=== PATIENT | male | born 1965 | race Caucasian/White ===

== ENCOUNTER → 2018-10-11 15:14 | Outpatient (CLI) | payer OTHER, SELFPAY ==
--- NOTE | 2018-10-11 15:20 | XR_ITS ---
XR chest 2V HISTORY: ITS.REASON: TOBACCO ABUSE DISORDER ORDERING PHYSICIAN: Katerin Solomon MD PATIENT AGE: 53 years COMPARISON: None FINDINGS: The cardiomediastinal silhouette and pulmonary vascularity are within normal limits. The lungs are clear without infiltrates, suspicious nodules, or pleural effusions. No acute bony abnormalities. IMPRESSION: Negative chest, no acute finding
== END ==
PROVIDERS: PCP Family Medicine; Visit Provider Family Medicine
DX: Z72.0 Tobacco use (principal)
CPT/HCPCS: 71046

== ENCOUNTER → 2019-04-23 08:15 | Outpatient (CLI) | payer OTHER, SELFPAY ==
--- NOTE | 2019-04-23 | CA_ITS ---
APPROVED REPORT Exam: Exercise Treadmill Technologist: Megan Rosales Ht: 5 ft 10 in Wt: 160 lbs BSA: 1.90 m2 HR: 65 bpm BP: 135/86 mmHg Indications: Gallop Rhythm Medical History Medications: None,,,,, Stress Test Details Test: Ralph HR Resting HR: 68 bpm Max Heart Rate (APMHR): 169 bpm Max HR Achieved: 164 bpm Target HR (85% APMHR): 143 bpm % of APMHR: 97 Recovery HR: 94 bpm BP Resting BP: 135.0/86.0 mmHg Max BP: 178.0/86.0 mmHg Recovery BP: 143.0/98.0 mmHg ECG Clinical Reason for Termination: Dyspnea Exercise duration: 13:01 min Highest Stage Achieved: Exercise capacity: 14.8 METs Stress ECG Conclusion Normal stress test. Patient exercised on a Ralph Protocol for 13 minutes to a peak heart rate of 164 beats per minute (target heart rate 144 beats per minute) without chest pain, ST segment changes or arrhythmias. Test stoppped due to shortness of air and leg discomfort. Total METS acheived 14.36 with peak blood pressure of 175/84 mmHg. Treadmill only, no additional imaging ordered. Test Summary Stage 5 01:00 18.0 5.0 163 . . . . REST . . . . . . . Standing REST 12:03 0.0 0.0 68 . 135/ 86 . . Stage 1 01:00 10.0 1.7 80 . . . . Stage 1 02:00 10.0 1.7 85 . . . . Stage 1 03:00 10.0 1.7 79 . 140/ 78 . . Stage 2 01:00 12.0 2.5 88 . . . . Stage 2 02:00 12.0 2.5 96 . . . . Stage 2 03:00 12.0 2.5 101 . 144/ 78 . . Stage 3 01:00 14.0 3.4 110 . . . . Stage 3 02:00 14.0 3.4 113 . . . . Stage 3 03:00 14.0 3.4 118 . 160/ 82 . . Stage 4 01:00 16.0 4.2 133 . . . . Stage 4 02:00 16.0 4.2 142 . . . . Stage 4 03:00 16.0 4.2 150 . 175/ 84 . . Stage 5 01:00 18.0 5.0 163 . . . . Stage 5 01:01 18.0 5.0 163 . . . Stop exercise at 13:01 RECOVERY 01:00 0.0 0.0 142 . 178/ 86 . . RECOVERY 02:00 0.0 0.0 127 . 178/ 86 . . RECOVERY 03:00 0.0 0.0 114 . 178/ 86 . . RECOVERY 04:00 0.0 0.0 110 . 178/ 86 . . RECOVERY 05:00 0.0 0.0 112 . 161/102 . . RECOVERY 06:00 0.0 0.0 103 . 161/102 . . RECOVERY 07:00 0.0 0.0 99 . 143/ 98 . . RECOVERY 07:17 0.0 0.0 93 . 143/ 98 . . Electronically signed by : Marquise Sow, 04/23/2019 12:59:14
== END ==
PROVIDERS: PCP Family Medicine; Visit Provider Family Medicine
DX: R00.8 Other abnormalities of heart beat (principal)
CPT/HCPCS: 93017

== ENCOUNTER → 2020-02-18 06:57 | Outpatient (CLI) | payer MEDICAID, SELFPAY ==
[2020-02-18 09:11] LABS: Coronavirus 19 IgG Antibody Negative (Negative); Coronavirus 19 IgM Antibody Negative (Negative)
== END ==
PROVIDERS: Visit Provider Surgery
DX: Z01.818 Encounter for other preprocedural examination (principal); Z12.11 Encounter for screening for malignant neoplasm of colon
CPT/HCPCS: 36415; 86328

== ENCOUNTER 2020-02-19 07:28 | Day surgery (SDC) | payer MEDICAID, SELFPAY ==
[2020-02-19] VITALS (7 sets, daily range): BP systolic 86–131; BP diastolic 58–79; PULSE 57–71; RESP 18–20; TEMP 36.6–36.7; O2SAT 97–100; BMI 21.8
--- NOTE | 2020-02-19 09:04 | HMH.SCOPE ---
- Procedure: Date: 02/19/20 Patient Date of :: 1965 Procedure Performed:: Total colonoscopy to terminal ileum with polypectomy by biopsy forceps x2 Indications:: 54-year-old male referred by Fuentes Solomon for initial screening colonoscopy Performing Provider:: Dash King MD Referring Provider:: Fuentes Solomon MD Sedation:: MAC sedation Procedure:: Patient was taken to endoscopy procedure room. He was positioned in a lateral decubitus position. Adequate intravenous sedation was achieved with anesthesia titration of propofol. Variable stiffness Olympus colonoscope was inserted via the anus and it was advanced to the cecum. Ileocecal valve and appendiceal orifice were identified. Colonoscope was advanced a short distance into the terminal ileum which appeared grossly normal. Colonoscope was withdrawn through the colon with careful surveillance. There was a tiny diminutive polyp at the proximal transverse colon removed with cold biopsy forceps. In the sigmoid colon at approximately 50 cm from the anal verge there is a small diminutive polyp removed with cold biopsy forceps. He did have some scattered rare pandiverticulosis. Retroflexion within the rectum revealed no evidence of any internal hemorrhoids. Colonoscope was withdrawn. Findings:: Tiny diminutive polyp x2 Rare scattered pandiverticulosis Recommendations:: Likely repeat colonoscopy 5 years Complications:: None immediately apparent Estimated blood obtained (mL): 2
== END 2020-02-19 09:55 | disposition home or self-care (01) ==
LOC: OUTP 07:30
PROVIDERS: PCP Family Medicine; Visit Provider Surgery
PROC: 0DJD8ZZ Inspection of Lower Intestinal Tract, Via Natural or Artificial Opening Endoscopic (ICD-10-PCS; CPT 45380; principal; 2020-02-19 08:30)
DX: Z12.11 Encounter for screening for malignant neoplasm of colon (principal); K63.5 Polyp of colon; K57.30 Diverticulosis of large intestine without perforation or abscess without bleeding; F41.9 Anxiety disorder, unspecified; Z79.899 Other long term (current) drug therapy
CPT/HCPCS: 45380

== ENCOUNTER 2021-05-13 12:21 | Observation (INO) | payer OTHER, SELFPAY ==
[2021-05-13] VITALS (22 sets, daily range): BP systolic 113–147; BP diastolic 72–99; PULSE 80–94; RESP 16–20; TEMP 36.4–36.9; O2SAT 91–98; BMI 21.8; BMI 22.6
--- NOTE | 2021-05-13 12:45 | CT_ITS ---
FINAL REPORT CLINICAL HISTORY: RLQ pain, r/o appendicitis FINDINGS: Technique: The patient was injected with intravenous contrast. Axial images through the abdomen and pelvis were performed. Abdomen: There is abnormal linear density at the right lung base consistent with atelectasis. The gallbladder is present. The liver is normal in size and attenuation. The spleen is unremarkable. The adrenals are normal. The pancreas is unremarkable. The kidneys enhance appropriately. The aorta is normal in caliber. There is no free fluid or adenopathy. Pelvis: The appendix has a marked abnormal appearance. It is enlarged measuring 1.5 cm in diameter. There is surrounding inflammatory reaction. No appendicolith is seen. There is no definite abscess. Scattered diverticula are noted within the sigmoid colon. Heterogeneous attenuation is noted throughout the prostate. There is an ovoid subcutaneous structure in the right gluteal region measuring 3.7 x 1.9 cm and is probably related to a sebaceous cyst. The urinary bladder is unremarkable. There is no free fluid or adenopathy. There is bilateral pars defects at L5 well seen on image 77 of series 3. IMPRESSION: Abnormally appearing, enlarged appendix with surrounding inflammatory reaction and no definite abscess. Probable sebaceous cyst in the right gluteal region. Bilateral pars defects at L5. Heterogeneous prostate. Reviewed, Interpreted and Dictated by Jayme Pierce MD Transcribed by Michelle Bull Authenticated by Jayme Pierce MD on 05/13/2021 02:18:09 PM [facility]
--- NOTE | 2021-05-13 12:46 | HMH.EDGENADL ---
ED Disposition Clinical Impression: Acute appendicitis Qualifiers: Acute appendicitis type: with localized peritonitis Appendicitis gangrene presence: without gangrene Appendicitis perforation presence: without perforation Appendicitis abscess presence: without abscess Qualified Code(s): K35.30 - Acute appendicitis with localized peritonitis, without perforation or gangrene Disposition: Still a Patient Condition on Discharge: Fair Referrals: Katerin Solomon MD [Primary Care Provider] - - Critical Care Critical Care Time: No Attestation: On 05/13/21, the high probability of a clinically significant, sudden or life threatening deterioration of the following system(s) required my full and direct attention, intervention and personal management. The time I documented below is in addition to time spent performing reported procedures but includes the following listed in this critical care notation. Medical Decision Making - Jayesh Inquiry Pt receiving controlled substance: No Vital Signs: 05/13/21 12:22 Temperature 98.1 F Temperature Source Oral Pulse Rate [Right Radial] 87 Respiratory Rate 16 Blood Pressure [Right Arm] 147/99 H Blood Pressure Mean [Right Arm] 115 Blood Pressure Source [Right Arm] Automatic Cuff Blood Pressure Position [Right Arm] Sitting 02 Sat by Pulse Oximetry 98 Oxygen Delivery Method Room Air - Lab Data Lab Results 05/13/21 13:07: WBC 19.3 H, RBC 5.60, Hgb 17.2, Hct 51.9, MCV 92.8, MCH 30.7, MCHC 33.1, RDW 13.3, Plt Count 301, MPV 7.8, Neut % (Auto) 84.6 H, Lymph % (Auto) 8.2 L, Rich % (Auto) 6.1, Eos % (Auto) 0.5, Baso % (Auto) 0.6, Neut # (Auto) 16.3 H, Lymph # (Auto) 1.6, Rich # (Auto) 1.2 H, Eos # (Auto) 0.1, Baso # (Auto) 0.1 05/13/21 13:07: Sodium 136, Potassium 4.3, Chloride 100, Carbon Dioxide 27, Anion Gap 13.3, BUN 13, Creatinine 0.80, Estimated Creat Clear 104, Estimated GFR 101, Est GFR ( Amer) 122, Glucose 104 H, Calcium 9.6, Total Bilirubin 1.8 H, AST 31, ALT 23, Alkaline Phosphatase 96, Total Protein 8.7 H, Albumin 4.7, Globulin 4.0 H, Albumin/Globulin Ratio 1.2, Lipase 19 L Result diagrams: 05/13/21 13:07 05/13/21 13:07 Orders (Tests/Meds): ED MEDICATIONS Generic Name Dose Route Start Last Admin Trade Name Freq PRN Reason Stop Dose Admin Sodium Chloride 1,000 mls @ 150 mls/hr 05/13/21 12:45 05/13/21 13:10 Sod Chlor 0.9% 1000ml Bag IV 06/12/21 12:44 150 mls/hr .[id number] DINORA Administration Discontinued Medications Generic Name Dose Route Start Last Admin Trade Name Freq PRN Reason Stop Dose Admin Iopamidol 75 ml 05/13/21 13:23 05/13/21 13:24 Iopamidol-370 (76%);100ml Bottle IV 05/13/21 13:24 75 ml ONCE ONE Administration Sodium Chloride 10 ml 05/13/21 13:23 05/13/21 13:24 Sodium Chloride 0.9% 10ml Syr (Rad Only) IV 05/13/21 13:24 10 ml ONCE ONE Administration ORDERS Category Date Time Status CT abdomen pelvis w con Stat Cat Scan 05/13/21 12:45 Taken Complete Blood Count Auto Diff Stat Lab 05/13/21 13:07 Results Rapid PCR Covid and Flu A/B Stat Lab 05/13/21 13:40 Received - CT Data CT Scan: Abdomen, Pelvis Time Received: 14:[address] Reviewed: Yes: I have viewed the radiologist's interpretation Findings Narrative: Preliminary report: Abnormally appearing enlarged appendix with surrounding inflammatory reaction and no definite abscess. Probable sebaceous cyst in the right gluteal region. General Adult HPI - General Stated complaint: possible appendicitis Time Seen by Provider: 05/13/21 12:40 - History of Present Illness HPI narrative: Sent from Dr. Solomon's office with presumptive diagnosis of appendicitis. Complains of right lateral abdominal pain that started yesterday morning. Worsens with movements. Denies vomiting, diarrhea, fever, urinary symptoms. No prior abdominal surgeries. Had a CBC and urinalysis performed in Dr. Solomon's office. White blood cell count 22,000. Urinalysis unre
--- NOTE | 2021-05-13 12:52 | HMH.HP ---
*Admission Date: 05/13/21 *Chief complaint: right lower abdominal pain *History of present illness: Mr. Vilchis is a 55-year-old male who is relatively healthy who presented to the office of [facility] today after experiencing right lower quadrant abdominal pain. The pain started yesterday and progressively has worsened. He states it felt better when sitting but when up walking it became worse. He denied having any nausea or vomiting. His bowels were moving normally. He denied fever. He was unable to sleep during the night due to the discomfort. Thus he presented to the office for evaluation. In the office he was noted to be tender in the right lower quadrant. He was afebrile with a temperature of 98.4. He had a complete blood count with a white blood cell count of 22,000, hemoglobin was 16.5 and hematocrit 47.5. Granulocytes were 83.7. Urine showed only 1+ ketones 1+ bili and 1+ protein; nitrates and leukocytes were negative. Patient was felt to have an acute appendicitis with the need for admission to [facility]. Due to hospital regulation he was sent to the emergency room for further evaluation and for the admission. At the time of this report patient remains in the emergency room and will have a CT of the abdomen. [facility] History Medical History: Reports:: Anxiety Denies:: Cancer, Diabetes Mellitus Type 1, Diabetes Mellitus Type 2, Internal Pacemaker, MRSA, Seizures *Have you ever received a pneumonia vaccine?: No *Have you received a flu vaccine this season?: No Other Medical History: Reports: Blood Transfusion Reaction Other Surgeries: Yes: No Previous Surgery, Colonoscopy. No: Pacemaker Amputation: No Fractures: Yes Comment: Fracture left arm with placement of 2 plates. Cyst removal from the right side of his head. - *Social History Smoking Status: Current every day smoker Tobacco Type: cigarettes # Packs/Day (cigarettes): 2 Alcohol Intake: never Substance Use Type: denies use *Occupational Status:: employed Housing: house *Travel in the last 8 weeks: None - Psychiatric History Pschychiatric History:: Reports:: Anxiety Family Hx:: No significant family history Review of Systems - Constitutional Denies fever(s), Denies lack of energy, Denies weight loss - Eyes Denies change in vision - ENT Denies ear pain, Denies sore throat - *Cardiovascular Denies chest pain, Denies shortness of breath, Denies leg swelling - *Respiratory Denies chest congestion, Denies cough, Denies shortness of breath - *Gastrointestinal Reports abdominal pain (RLQ), Denies constipation, Denies loose stools, Denies heartburn, Denies nausea, Denies vomiting - *Genitourinary Denies difficulty urinating - *Musculoskeletal Denies abnormal walking - *Neurologic Denies abnormal walking, Denies seizure-like activity Meds Home Medications Medication Instructions Recorded Confirmed Type alprazolam 1 mg tablet 1 mg PO DAILY tab 01/28/20 03/03/20 History Allergies Allergy/AdvReac Type Severity Reaction Status Date / Time No Known Allergies Allergy Verified 03/03/20 10:20 Exam - Constitutional no acute distress - *Routine HEENT Exam Head: Present: normocephalic, atraumatic Eye: Absent: PERRL, conjunctival icterus, scleral injection ENT: Present: mucous membranes moist, oropharynx clear - *Routine Neck Exam Present: supple. Absent: normal carotid upstroke, lymphadenopathy, thyromegaly - *Routine Respiratory Exam Present: CTA bilaterally (A&P) - *Routine Cardiovascular Exam Present: RRR - *Routine Abdominal Exam Present: soft, normoactive bowel sounds, tenderness (RLQ), rebound. Absent: distended - *Routine Rectal Exam Rectal:: deferred - *Routine Genitalia Exam Genitalia:: deferred - *Routine Extremities Exam Absent: edema, calf tenderness - *Routine Neurological Exam Present: alert, oriented X3 Assessment and Plan (1) Right lower quadrant abdominal pain Status: Acute Category:
--- NOTE | 2021-05-13 13:12 | PC.NURSE ---
pt to CT
[2021-05-13 13:32] LABS: Basophils # 0.1 K/mm3 (0-0.2); Basophils % 0.6 % (0.1-2.0); Chloride 100 mmol/L (98-107); Eosinophils # 0.1 K/mm3 (0.0-0.4); Eosinophils % 0.5 % (0.1-12.0); Hematocrit 51.9 % (42.0-52.0); Hemoglobin 17.2 g/dL (14.1-18.0); Lymphocytes # 1.6 K/mm3 (0.7-4.5); Lymphocytes % 8.2 % (10-50); Mean Corpuscular HGB Conc 33.1 g/dL (31.8-35.4); Mean Corpuscular Hemoglobin 30.7 pg (27.0-31.2); Mean Corpuscular Volume 92.8 fl (80-94); Mean Platelet Volume 7.8 fl (7.4-10.4); Monocytes # 1.2 K/mm3 (0.1-1.0); Monocytes % 6.1 % (1.7-9.3); Neutrophils # 16.3 K/mm3 (1.8-7.8); Neutrophils % 84.6 % (37.0-80.0); Platelet Count 301 K/mm3 (142-424); Potassium 4.3 mmoL/L (3.5-5.1); Red Cell Distribution Width 13.3 % (11.5-17.5); Sodium 136 mmol/L (136-145); White Blood Count 19.3 K/mm3 (4.8-10.8)
[2021-05-13 13:35] LABS: Alanine Aminotransferase 23 U/L (12-78); Albumin Level 4.7 g/dl (3.5-5.0); Albumin/Globulin Ratio 1.2 (1.1-1.8); Alkaline Phosphatase 96 U/L (38-126); Anion Gap 13.3 mEq/L (5-15); Aspartate Amino Transferase 31 U/L (17-59); Bilirubin,Total 1.8 mg/dl (0.2-1.3); Blood Urea Nitrogen 13 mg/dl (9-20); Calcium 9.6 mg/dl (8.4-10.2); Carbon Dioxide 27 mmol/L (22.0-30.0); Creatinine Clearance Estimated 104 mL/min (50-200); Estimated Glomerular Filt Rate 101 ml/min (>60); GFR (African American) 122 ML/MIN (>60); Glucose 104 mg/dl (74-100); Lipase 19 U/L (23-300); Total Protein,Serum 8.7 g/dl (6.3-8.2)
[2021-05-13 13:37] LABS: MANUAL DIFFERENTIAL MANUAL DIFFERENTIAL (MANUAL DIFF)
[2021-05-13 13:45] LABS: Coronavirus 19, PCR Not Detected (NotDetected); Influenza A, PCR Not Detected (NotDetected); Influenza B, PCR Not Detected (NotDetected)
--- NOTE | 2021-05-13 14:17 | PC.NURSE ---
DR STROUD AT BEDSIDE
--- NOTE | 2021-05-13 14:23 | PC.NURSE ---
pt to surgery
--- NOTE | 2021-05-13 14:40 | HMH.GSCON ---
*Admission Date: 05/13/21 *Reason for consult:: Appendicitis *History of present illness: Wenceslao is a 55-year-old gentleman seen in consultation from Dr. Solomon for evaluation regarding appendicitis. He presented earlier today with a 1 day history of increasing right-sided abdominal pain. Evaluation revealed tenderness in the right side and significant leukocytosis. He was transferred to the emergency department. A CT scan confirmed changes consistent with appendicitis. Review of Systems - Constitutional Denies chills - Eyes Denies change in vision - ENT Denies difficulty swallowing - *Cardiovascular Denies chest pain - *Respiratory Denies cough - *Gastrointestinal Reports abdominal pain - *Genitourinary Denies difficulty urinating - Integumentary/Breasts Denies new lesions - *Neurologic Denies abnormal walking, Denies seizure-like activity - Psychiatric Denies anxiety - Endocrine Denies cold intolerance - Hematologic/Lymphatic Denies easy bleeding [facility] History Medical History: Reports:: Anxiety Denies:: Cancer, Diabetes Mellitus Type 1, Diabetes Mellitus Type 2, Internal Pacemaker, MRSA, Seizures *Have you ever received a pneumonia vaccine?: No *Have you received a flu vaccine this season?: No Other Medical History: Reports: Blood Transfusion Reaction Other Surgeries: Yes: No Previous Surgery, Colonoscopy. No: Pacemaker Amputation: No Fractures: Yes - *Social History Smoking Status: Current every day smoker Tobacco Type: cigarettes # Packs/Day (cigarettes): 2 Alcohol Intake: never Substance Use Type: denies use *Occupational Status:: employed Housing: house *Travel in the last 8 weeks: None - Psychiatric History Pschychiatric History:: Reports:: Anxiety Family Hx:: No significant family history Meds Home Medications Medication Instructions Recorded Confirmed Type alprazolam 1 mg tablet 1 mg PO DAILY tab 01/28/20 03/03/20 History Allergies Allergy/AdvReac Type Severity Reaction Status Date / Time No Known Allergies Allergy Verified 03/03/20 10:20 Exam Vital signs and Labs for Last 24 Hours: Temp Pulse Resp BP Pulse Ox 98.1 F 87 16 147/99 H 98 05/13/21 12:22 05/13/21 12:22 05/13/21 12:22 05/13/21 12:22 05/13/21 12:22 Laboratory Results - last 24 hr 05/13/21 13:07: WBC 19.3 H, RBC 5.60, Hgb 17.2, Hct 51.9, MCV 92.8, MCH 30.7, MCHC 33.1, RDW 13.3, Plt Count 301, MPV 7.8, Neut % (Auto) 84.6 H, Lymph % (Auto) 8.2 L, Garvin % (Auto) 6.1, Eos % (Auto) 0.5, Baso % (Auto) 0.6, Neut # (Auto) 16.3 H, Lymph # (Auto) 1.6, Garvin # (Auto) 1.2 H, Eos # (Auto) 0.1, Baso # (Auto) 0.1 05/13/21 13:07: Sodium 136, Potassium 4.3, Chloride 100, Carbon Dioxide 27, Anion Gap 13.3, BUN 13, Creatinine 0.80, Estimated Creat Clear 104, Estimated GFR 101, Est GFR ( Amer) 122, Glucose 104 H, Calcium 9.6, Total Bilirubin 1.8 H, AST 31, ALT 23, Alkaline Phosphatase 96, Total Protein 8.7 H, Albumin 4.7, Globulin 4.0 H, Albumin/Globulin Ratio 1.2, Lipase 19 L I & O for Last 24 hours: Intake & Output 05/11/21 05/12/21 05/13/21 05/14/21 11:59 11:59 11:59 11:59 Weight 152 lb - Constitutional no acute distress - *Routine HEENT Exam Head: Present: normocephalic Eye: Present: EOMI ENT: Present: mucous membranes moist - *Routine Neck Exam Present: full ROM - *Routine Respiratory Exam Absent: respiratory distress - *Routine Cardiovascular Exam Present: RRR - *Routine Abdominal Exam Present: soft, tenderness - *Routine Skin Exam Absent: cyanosis, erythema - *Routine Neurological Exam Present: alert - Routine Psychiatric Exam Present: normal affect Results - Labs 05/13/21 13:07 05/13/21 13:07 Laboratory Results - last 24 hr 05/13/21 13:07: WBC 19.3 H, RBC 5.60, Hgb 17.2, Hct 51.9, MCV 92.8, MCH 30.7, MCHC 33.1, RDW 13.3, Plt Count 301, MPV 7.8, Neut % (Auto) 84.6 H, Lymph % (Auto) 8.2 L, Garvin % (Auto) 6.1, Eos % (Auto) 0.5, Baso % (Auto)
[2021-05-13 15:15] LABS: Lymphocytes % 6 % (10-50); Monocytes % 9 % (2-9); Neutrophils % 85 % (42-76); Platelet Estimate Normal; Total Cells Counted 100
--- NOTE | 2021-05-13 15:17 | HMH.ANESCL ---
[facility] Anesthesia Checklist - Patient Identification Patient Identification: Arm Band - Structural Data Admitted From: Emergency Dept Planned Operative Procedure/s: Laparoscopic Appendectomy Consent for Planned Operative Procedure(s) Verified: Yes Verified Documents: Surgical Consent, History and Physical - NPO Status Verified Time NPO: 00:00 - Additional verifications Anesthesia Reactions: No Blood Transfusion Reaction: Yes - Airway Assessment C-Spine Mobility Assessed: Yes (mp2) TMJ Mobility Assessed: Yes Dentition: Poor Dentition - Neurological Assessment Level of Consciousness: Awake, Alert - Anesthesia Plan Anesthesia Risk discussed: Yes Anesthesia Plan: Verified ASA Class: II (e) Anesthesia Type: General [facility] History I have reviewed the patient's past medical history: Yes Medical History: Reports:: Anxiety Denies:: Cancer, Diabetes Mellitus Type 1, Diabetes Mellitus Type 2, Internal Pacemaker, MRSA, Seizures *Have you ever received a pneumonia vaccine?: No *Have you received a flu vaccine this season?: No Other Medical History: Reports: Blood Transfusion Reaction Anesthesia experience/problems:: nac Other Surgeries: Yes: Colonoscopy. No: Pacemaker Amputation: No Fractures: Yes - *Social History Smoking Status: Current every day smoker Tobacco Type: cigarettes # Packs/Day (cigarettes): 2 Alcohol Intake: never Substance Use Type: denies use *Occupational Status:: employed Housing: house *Travel in the last 8 weeks: None - Psychiatric History Pschychiatric History:: Reports:: Anxiety Family Hx:: No significant family history
--- NOTE | 2021-05-13 16:08 | HMH.OPNOTE ---
Date of procedure: 05/13/21 Pre-op Diagnosis:: Appendicitis Post-op Diagnosis:: Suppurative appendicitis Procedure performed:: Laparoscopic appendectomy Surgeon:: Danie Swain MD LAPPING MACHINE OPERATOR:: Nilo Cedillo Anesthesia: HILLARY Estimated blood loss (mL): 15 Operative findings:: Severe inflammatory changes throughout appendix Suppurative changes along mid and distal appendix No definite perforation Appendix directly adhered to adjacent colon and adjacent small bowel No definitive evidence of colonic or small bowel injury Operative note:: After informed consent was obtained the patient was taken to the operating room and placed in the supine position. General anesthesia was induced and his abdomen was prepped and draped in a sterile fashion. After infiltration local anesthetic a supraumbilical incision was made. A Veress needle was placed in position. The abdomen was insufflated. A 12 mm optical trocar was placed in position. Under direct visualization an additional 5 mm trocar was placed in the suprapubic position and an additional 5 mm trocar was placed in the left lower quadrant. The right abdominal cavity was carefully elevated. Severe inflammation throughout the right mid and upper abdomen was noted. Dissection was exceptionally difficult and the appendix was discovered to be in a retrocecal location with dense direct adhesions to the adjacent colon and dense direct adhesions to the small bowel. The appendix was carefully elevated at its base. A window was made in the mesoappendix at the base and a stapling device was utilized to transect the appendix. Harmonic lion were then used to dissect the appendix free from adjacent inflammatory tissue. The dissection was taken on the margin of the appendix to lessen the risk for injury to colon or small bowel. No obvious colonic or small bowel injury was noted. The mid and distal appendix were increasingly inflamed and suppurative changes were confirmed. No definite perforation was seen. Once the appendix was freed from surrounding tissue it was placed in a retrieval bag and removed through the supraumbilical trocar site. The right gutter was carefully irrigated. No obvious bleeding or sign of injury was noted. The trocars were removed. Fascia at the supraumbilical trocar site was reapproximated with 0 Ethibond. Skin was then closed with 4-0 Monocryl in an interrupted fashion after all wounds were irrigated. Dressings were applied and the patient was transferred to recovery in stable condition after extubation. Condition: stable Disposition: PACU Specimens:: Appendix Complications:: No immediate
--- NOTE | 2021-05-13 16:13 | P.PN_ITS ---
[facility] Anesthesia Record Part I Intake, IV Amount: 1,200 Estimated blood loss (mL): 10 Urine output (mL): 0 Blood Pressure: 130/79 SaO2: 97 Pulse Rate: 83 Respiratory Rate: 16 Temperature: 98.2 F Patient is:: Drowsy, Stable Stable to PACU at:: 16:10
--- NOTE | 2021-05-13 16:58 | PC.NURSE ---
1654-detailed report called to Ros,RN [id number]-pt transported to med/surg via hospital bed w/winston rails up, vss, pt stable upon discharge from pacu
--- NOTE | 2021-05-13 17:44 | HMH.ANESII ---
[facility] Anesthesia Record Part II Discharge Time: 16:56 Destination: Medical Surgical Department PACU nurse assessment reviewed?: Yes Patient Condition:: Good Anesthesia Complications:: None Swallowing reflex intact?: Yes Cyanosis?: No Blood Pressure: 141/88 Pulse Rate: 84 Temperature: 98.4 F Mental Status: Alert & Oriented Pain level:: 0 Nausea and/or vomitting:: None Intake, IV Amount: 0
[2021-05-14] VITALS: BP 124/84; PULSE 80; RESP 18; TEMP 36.7; O2SAT 97
[2021-05-14 04:00] VITALS: BP 108/67; PULSE 74; RESP 18; TEMP 37.1; O2SAT 95
[2021-05-14 05:02] VITALS: BMI 22.6
[2021-05-14 06:39] LABS: Basophils % 0.1 % (0.1-2.0); Hematocrit 40.9 % (42.0-52.0); Lymphocytes # 1.5 K/mm3 (0.7-4.5); Lymphocytes % 7.6 % (10-50); Mean Corpuscular HGB Conc 32.6 g/dL (31.8-35.4); Mean Corpuscular Hemoglobin 30.5 pg (27.0-31.2); Mean Corpuscular Volume 93.7 fl (80-94); Mean Platelet Volume 8.4 fl (7.4-10.4); Monocytes # 0.9 K/mm3 (0.1-1.0); Monocytes % 4.5 % (1.7-9.3); Neutrophils # 16.6 K/mm3 (1.8-7.8); Neutrophils % 87.7 % (37.0-80.0); Platelet Count 239 K/mm3 (142-424); Red Blood Count 4.37 M/mm3 (4.60-6.20); Red Cell Distribution Width 13.4 % (11.5-17.5); White Blood Count 18.9 K/mm3 (4.8-10.8)
[2021-05-14 06:48] LABS: MANUAL DIFFERENTIAL MANUAL DIFFERENTIAL (MANUAL DIFF)
--- NOTE | 2021-05-14 07:00 | HMH.GSPN ---
Subjective Patient reports: flatus Narrative: He states that he is feeling a bit better this morning . Progress Note: A&P (1) Right lower quadrant abdominal pain Status: Acute (2) Smoking addiction Status: Chronic (3) Anxiety Status: Chronic (4) Leucocytosis Status: Acute (5) Suppurative appendicitis Status: Acute Assessment and plan: Overall, doing well status post laparoscopic appendectomy. Continue antibiotics for now secondary to suppurative nature of appendicitis Increase ambulation Full liquid diet ordered (very slow advancement of diet warranted secondary to intraoperative findings) Exam Vital signs and Labs for Last 24 Hours: Temp Pulse Resp BP Pulse Ox 98.8 F 74 18 108/67 L 95 05/14/21 04:00 05/14/21 04:00 05/14/21 04:00 05/14/21 04:00 05/14/21 04:00 Laboratory Results - last 24 hr 05/13/21 13:07: WBC 19.3 H, RBC 5.60, Hgb 17.2, Hct 51.9, MCV 92.8, MCH 30.7, MCHC 33.1, RDW 13.3, Plt Count 301, MPV 7.8, Neut % (Auto) 84.6 H, Lymph % (Auto) 8.2 L, [place] % (Auto) 6.1, Eos % (Auto) 0.5, Baso % (Auto) 0.6, Neut # (Auto) 16.3 H, Lymph # (Auto) 1.6, [place] # (Auto) 1.2 H, Eos # (Auto) 0.1, Baso # (Auto) 0.1, Total Counted 100, Neutrophils % (Manual) 85 H, Lymphocytes % (Manual) 6 L, Monocytes % (Manual) 9, Platelet Estimate Normal 05/13/21 13:07: Sodium 136, Potassium 4.3, Chloride 100, Carbon Dioxide 27, Anion Gap 13.3, BUN 13, Creatinine 0.80, Estimated Creat Clear 104, Estimated GFR 101, Est GFR ( Amer) 122, Glucose 104 H, Calcium 9.6, Total Bilirubin 1.8 H, AST 31, ALT 23, Alkaline Phosphatase 96, Total Protein 8.7 H, Albumin 4.7, Globulin 4.0 H, Albumin/Globulin Ratio 1.2, Lipase 19 L 05/13/21 13:40: SARS-CoV-2 (PCR) Not detected, Influenza A Untype (PCR) Not detected, Influenza Type B (PCR) Not detected 05/14/21 05:39: WBC 18.9 H, RBC 4.37 L, Hct 40.9 L, MCV 93.7, MCH 30.5, MCHC 32.6, RDW 13.4, Plt Count 239, MPV 8.4, Neut % (Auto) 87.7 H, Lymph % (Auto) 7.6 L, [place] % (Auto) 4.5, Eos % (Auto) 0.0 L, Baso % (Auto) 0.1, Neut # (Auto) 16.6 H, Lymph # (Auto) 1.5, [place] # (Auto) 0.9, Eos # (Auto) 0.0, Baso # (Auto) 0.0 I & O for Last 24 hours: Intake & Output 05/11/21 05/12/21 05/13/21 05/14/21 11:59 11:59 11:59 11:59 Intake Total 2800 / 2800 Balance 2800 / 2800 Weight 158 lb 9 oz - Constitutional no acute distress - *Routine Respiratory Exam Absent: respiratory distress - *Routine Cardiovascular Exam Present: RRR - *Routine Abdominal Exam Present: soft, tenderness Comments: Dressings intact
[2021-05-14 07:15] LABS: Anion Gap 10.9 mEq/L (5-15); Blood Urea Nitrogen 11 mg/dl (9-20); Calcium 8.3 mg/dl (8.4-10.2); Carbon Dioxide 22 mmol/L (22.0-30.0); Chloride 107 mmol/L (98-107); Creatinine Clearance Estimated 109 mL/min (50-200); Estimated Glomerular Filt Rate 101 ml/min (>60); GFR (African American) 122 ML/MIN (>60); Glucose 115 mg/dl (74-100); Potassium 3.9 mmoL/L (3.5-5.1); Sodium 136 mmol/L (136-145)
--- NOTE | 2021-05-14 07:35 | HMH.PHAVTE ---
[facility] Pharmacy VTE Monitoring - Patient Demographics Admission date: 05/13/21 Report Date: 05/14/21 Time: 07:35 Allergies/Adverse Reactions: Patient Allergies No Known Allergies Allergy (Verified 03/03/20 10:20) Height: 1.78 m Weight: 71.923 kg Patient Problems: Current Active Problems Right lower quadrant abdominal pain (Acute) Smoking addiction (Chronic) Anxiety (Chronic) Leucocytosis (Acute) Suppurative appendicitis (Acute) - VTE Risk Labs: VTE Related Lab Results Hgb 17.2 g/dL (14.1-18.0) 05/13/21 13:07 Hct 40.9 % (42.0-52.0) L 05/14/21 05:39 Plt Count 239 K/mm3 (142-424) 05/14/21 05:39 BUN 11 mg/dl (9-20) 05/14/21 05:39 Creatinine 0.80 mg/dl (0.66-1.25) 05/14/21 05:39 Estimated Creat Clear 109 mL/min (50-200) 05/14/21 05:39 - Prophylaxis VTE Prophylaxis Ordered?: Yes Types of VTE Prophylaxis: TEDS Knee High Location of Applied Device: Bilateral Lower Extremeties
[2021-05-14 07:59] LABS: Lymphocytes % 7 % (10-50); Monocytes % 2 % (2-9); Neutrophils % 91 % (42-76); Platelet Estimate Normal; RBC Morphology Normal; Total Cells Counted 100
[2021-05-14 08:00] VITALS: BP 106/68; PULSE 71; RESP 16; TEMP 36.8; O2SAT 94
[2021-05-14 08:27] LABS: Hemoglobin 13.3 g/dL (14.1-18.0)
--- NOTE | 2021-05-14 08:46 | HMH.ACPN2 ---
Internal Medicine - PN: Subj *Date: 05/14/21 *Time: 08:46 Interval history: The patient had an appendectomy yesterday evening and tolerated the procedure well. He has some soreness in his abdomen this morning but has been able to tolerate a diet. He slept last night. Exam Vital signs and Labs for Last 24 Hours: Temp Pulse Resp BP Pulse Ox 98.8 F 74 18 108/67 L 95 05/14/21 04:00 05/14/21 04:00 05/14/21 04:00 05/14/21 04:00 05/14/21 04:00 Laboratory Results - last 24 hr 05/13/21 13:07: WBC 19.3 H, RBC 5.60, Hgb 17.2, Hct 51.9, MCV 92.8, MCH 30.7, MCHC 33.1, RDW 13.3, Plt Count 301, MPV 7.8, Neut % (Auto) 84.6 H, Lymph % (Auto) 8.2 L, [place] % (Auto) 6.1, Eos % (Auto) 0.5, Baso % (Auto) 0.6, Neut # (Auto) 16.3 H, Lymph # (Auto) 1.6, [place] # (Auto) 1.2 H, Eos # (Auto) 0.1, Baso # (Auto) 0.1, Total Counted 100, Neutrophils % (Manual) 85 H, Lymphocytes % (Manual) 6 L, Monocytes % (Manual) 9, Platelet Estimate Normal 05/13/21 13:07: Sodium 136, Potassium 4.3, Chloride 100, Carbon Dioxide 27, Anion Gap 13.3, BUN 13, Creatinine 0.80, Estimated Creat Clear 104, Estimated GFR 101, Est GFR ( Amer) 122, Glucose 104 H, Calcium 9.6, Total Bilirubin 1.8 H, AST 31, ALT 23, Alkaline Phosphatase 96, Total Protein 8.7 H, Albumin 4.7, Globulin 4.0 H, Albumin/Globulin Ratio 1.2, Lipase 19 L 05/13/21 13:40: SARS-CoV-2 (PCR) Not detected, Influenza A Untype (PCR) Not detected, Influenza Type B (PCR) Not detected 05/14/21 05:39: WBC 18.9 H, RBC 4.37 L, Hgb 13.3 L D, Hct 40.9 L, MCV 93.7, MCH 30.5, MCHC 32.6, RDW 13.4, Plt Count 239, MPV 8.4, Neut % (Auto) 87.7 H, Lymph % (Auto) 7.6 L, [place] % (Auto) 4.5, Eos % (Auto) 0.0 L, Baso % (Auto) 0.1, Neut # (Auto) 16.6 H, Lymph # (Auto) 1.5, [place] # (Auto) 0.9, Eos # (Auto) 0.0, Baso # (Auto) 0.0, Total Counted 100, Neutrophils % (Manual) 91 H, Lymphocytes % (Manual) 7 L, Monocytes % (Manual) 2, Platelet Estimate Normal, RBC Morphology Normal 05/14/21 05:39: Sodium 136, Potassium 3.9, Chloride 107, Carbon Dioxide 22, Anion Gap 10.9, BUN 11, Creatinine 0.80, Estimated Creat Clear 109, Estimated GFR 101, Est GFR ( Amer) 122, Glucose 115 H, Calcium 8.3 L I & O for Last 24 hours: Intake & Output 05/11/21 05/12/21 05/13/21 05/14/21 11:59 11:59 11:59 11:59 Intake Total 3000 / 3000 Balance 3000 / 3000 Weight 158 lb 9 oz - Constitutional no acute distress - *Routine Respiratory Exam Present: CTA bilaterally - *Routine Cardiovascular Exam Present: RRR - *Routine Abdominal Exam Present: soft, normoactive bowel sounds, tenderness (Around incision sites, dressings clean and dry) - *Routine Extremities Exam Absent: cyanosis, clubbing, edema - *Routine Skin Exam Present: warm. Absent: rash - *Routine Neurological Exam Present: alert, oriented X3 Assessment and Plan (1) Right lower quadrant abdominal pain Status: Acute Category: Medical Code(s): R10.31 - Right lower quadrant pain (2) Smoking addiction Status: Chronic Category: Social Hx Code(s): F17.200 - Nicotine dependence, unspecified, uncomplicated (3) Anxiety Status: Chronic Category: Medical Code(s): F41.9 - Anxiety disorder, unspecified (4) Leucocytosis Status: Acute Category: Medical Code(s): D72.829 - Elevated white blood cell count, unspecified (5) Suppurative appendicitis Status: Acute Category: Medical Code(s): K35.80 - Unspecified acute appendicitis - Assessment and plan all Dx Assessment and Plan for all problems:: Operative note states the patient had severe inflammatory changes throughout the appendix and suppurative changes along the mid and distal appendix. There was no definitive perforation, but the appendix was directly adhered to the adjacent colon and adjacent small bowel, therefore excision was very difficult. Dr. Swain wants to keep the patient on continued antibiotics and will advance his diet.
--- NOTE | 2021-05-14 11:29 | HMH.PHAINT ---
MEDICATION RECONCILIATION COMPLETED ON PATIENT USING EXTERNAL FILL HISTORY FROM PHARMACY AND LIST FROM [facility] OFFICE. -DEVYN CHATMAND
[2021-05-14 12:00] VITALS: BP 103/72; PULSE 77; RESP 18; TEMP 36.6; O2SAT 94
[2021-05-14 16:00] VITALS: BP 125/84; PULSE 79; RESP 18; TEMP 36.9; O2SAT 95
--- NOTE | 2021-05-14 16:23 | PC.NURSE ---
Routine reassessment completed. No acute changes noted from previous assessment. T&T x2 remains C/D/I. T&T x1 remains with dry serous drainage, no new drainage noted. Pt. reports pain when moving but currently denies pain. Pt. denies needs, will continue to monitor.
[2021-05-14 20:00] VITALS: BP 137/83; PULSE 80; RESP 17; TEMP 37.1; O2SAT 95; O2SAT 97
[2021-05-15 04:00] VITALS: BP 122/80; PULSE 78; RESP 18; TEMP 36.7; O2SAT 94
--- NOTE | 2021-05-15 04:04 | PC.NURSE ---
Pt has rested well this shift with no complaints. No acute changes from previous assessment. 3 telfa and tegaderm dressings remain intact. VSS. Will continue to monitor.
[2021-05-15 05:35] VITALS: BMI 22.4
[2021-05-15 06:30] LABS: Basophils % 0.3 % (0.1-2.0); Eosinophils # 0.1 K/mm3 (0.0-0.4); Eosinophils % 0.4 % (0.1-12.0); Hematocrit 40.7 % (42.0-52.0); Hemoglobin 13.4 g/dL (14.1-18.0); Lymphocytes # 1.8 K/mm3 (0.7-4.5); Lymphocytes % 12.7 % (10-50); Mean Corpuscular Hemoglobin 30.9 pg (27.0-31.2); Mean Corpuscular Volume 93.6 fl (80-94); Mean Platelet Volume 8.4 fl (7.4-10.4); Monocytes # 0.8 K/mm3 (0.1-1.0); Monocytes % 5.7 % (1.7-9.3); Neutrophils # 11.7 K/mm3 (1.8-7.8); Neutrophils % 80.9 % (37.0-80.0); Platelet Count 277 K/mm3 (142-424); Red Blood Count 4.35 M/mm3 (4.60-6.20); Red Cell Distribution Width 13.4 % (11.5-17.5); White Blood Count 14.5 K/mm3 (4.8-10.8)
--- NOTE | 2021-05-15 07:02 | HMH.GSPN ---
Subjective Patient reports: no new complaints, feels better Progress Note: A&P (1) Right lower quadrant abdominal pain Status: Acute (2) Smoking addiction Status: Chronic (3) Anxiety Status: Chronic (4) Leucocytosis Status: Acute (5) Suppurative appendicitis Status: Acute Assessment and plan: Overall, doing well status post laparoscopic appendectomy. OK from surgical standpoint for discharge home with close outpatient follow-up Very slow advancement of diet at home [id number] stool softeners Short course of Augmentin ordered secondary to suppurative nature of appendicitis with possibility of microperforation Exam Vital signs and Labs for Last 24 Hours: Temp Pulse Resp BP Pulse Ox 98.1 F 78 18 122/80 94 L 05/15/21 04:00 05/15/21 04:00 05/15/21 04:00 05/15/21 04:00 05/15/21 04:00 Laboratory Results - last 24 hr 05/14/21 05:39: Hgb 13.3 L D, Total Counted 100, Neutrophils % (Manual) 91 H, Lymphocytes % (Manual) 7 L, Monocytes % (Manual) 2, Platelet Estimate Normal, RBC Morphology Normal 05/14/21 05:39: Sodium 136, Potassium 3.9, Chloride 107, Carbon Dioxide 22, Anion Gap 10.9, BUN 11, Creatinine 0.80, Estimated Creat Clear 109, Estimated GFR 101, Est GFR ( Amer) 122, Glucose 115 H, Calcium 8.3 L 05/15/21 06:16: WBC 14.5 H, RBC 4.35 L, Hgb 13.4 L, Hct 40.7 L, MCV 93.6, MCH 30.9, MCHC 33.0, RDW 13.4, Plt Count 277, MPV 8.4, Neut % (Auto) 80.9 H, Lymph % (Auto) 12.7, [place] % (Auto) 5.7, Eos % (Auto) 0.4, Baso % (Auto) 0.3, Neut # (Auto) 11.7 H, Lymph # (Auto) 1.8, [place] # (Auto) 0.8, Eos # (Auto) 0.1, Baso # (Auto) 0.0 I & O for Last 24 hours: Intake & Output 05/12/21 05/13/21 05/14/21 05/15/21 11:59 11:59 11:59 11:59 Intake Total 3000 / 3000 1080 / 1080 Output Total 300 / 300 Balance 2700 / 2700 1080 / 1080 Weight 158 lb 9 oz 157 lb 1 oz Microbiology Reports for the Last 24 Hours: Microbiology 05/13/21 15:00 Urine,Catheterized Urine Culture - Preliminary NO GROWTH AFTER 24 HOURS - Constitutional no acute distress - *Routine Respiratory Exam Absent: respiratory distress - *Routine Cardiovascular Exam Present: RRR - *Routine Abdominal Exam Present: soft Comments: Incision is healing without sign of infection. No hematoma.
[2021-05-15 08:00] VITALS: BP 115/71; PULSE 72; RESP 18; TEMP 37.1; O2SAT 93
--- NOTE | 2021-05-15 09:08 | HMH.ACPN2 ---
Internal Medicine - PN: Subj *Date: 05/15/21 *Time: 09:08 Interval history: He is sitting up in bed watching tv this morning. He tolerated breakfast well and reports abdominal discomfort only when changing positions. He is up to the BR to void and notes BM x 2 this morning. He is looking forward to discharge. Exam Vital signs and Labs for Last 24 Hours: Temp Pulse Resp BP Pulse Ox 98.7 F 72 18 115/71 93 L 05/15/21 08:00 05/15/21 08:00 05/15/21 08:00 05/15/21 08:00 05/15/21 08:00 Laboratory Results - last 24 hr 05/15/21 06:16: WBC 14.5 H, RBC 4.35 L, Hgb 13.4 L, Hct 40.7 L, MCV 93.6, MCH 30.9, MCHC 33.0, RDW 13.4, Plt Count 277, MPV 8.4, Neut % (Auto) 80.9 H, Lymph % (Auto) 12.7, [place] % (Auto) 5.7, Eos % (Auto) 0.4, Baso % (Auto) 0.3, Neut # (Auto) 11.7 H, Lymph # (Auto) 1.8, [place] # (Auto) 0.8, Eos # (Auto) 0.1, Baso # (Auto) 0.0 I & O for Last 24 hours: Intake & Output 05/12/21 05/13/21 05/14/21 05/15/21 11:59 11:59 11:59 11:59 Intake Total 3000 / 3000 1260 / 1260 Output Total 300 / 300 Balance 2700 / 2700 1260 / 1260 Weight 158 lb 9 oz 157 lb 1 oz Microbiology Reports for the Last 24 Hours: Microbiology 05/13/21 15:00 Urine,Catheterized Urine Culture - Preliminary NO GROWTH AFTER 24 HOURS - Constitutional no acute distress - *Routine HEENT Exam Head: Present: normocephalic, atraumatic ENT: Present: mucous membranes moist - *Routine Respiratory Exam Present: CTA bilaterally - *Routine Cardiovascular Exam Present: RRR - *Routine Abdominal Exam Present: soft, normoactive bowel sounds. Absent: guarding, rigid Comments: RLQ ttp with well-approximated lap surgical incisions without drainage or erythema - *Routine Extremities Exam Present: full ROM, pulses intact. Absent: calf tenderness, extremity cold to touch - *Routine Neurological Exam Present: alert, oriented X3, moving all extremities, normal speech Assessment and Plan (1) Right lower quadrant abdominal pain Status: Acute Category: Medical Code(s): R10.31 - Right lower quadrant pain (2) Smoking addiction Status: Chronic Category: Social Hx Code(s): F17.200 - Nicotine dependence, unspecified, uncomplicated (3) Anxiety Status: Chronic Category: Medical Code(s): F41.9 - Anxiety disorder, unspecified (4) Leucocytosis Status: Acute Category: Medical Code(s): D72.829 - Elevated white blood cell count, unspecified (5) Suppurative appendicitis Status: Acute Category: Medical Code(s): K35.80 - Unspecified acute appendicitis - Assessment and plan all Dx Assessment and Plan for all problems:: WBC has improved. Further per Dr. Solomon.
[2021-05-15 11:15] VITALS: BP 132/87; PULSE 76; RESP 24; TEMP 36.9; O2SAT 95
--- NOTE | 2021-05-18 22:57 | HMH.DCSUM ---
General - General Admission date:: 05/13/21 Discharge date: 05/15/21 HPI HPI: Mr. Vilchis is a 55-year-old male who is relatively healthy who presented to the office of [facility] today after experiencing right lower quadrant abdominal pain. The pain started yesterday and progressively has worsened. He states it felt better when sitting but when up walking it became worse. He denied having any nausea or vomiting. His bowels were moving normally. He denied fever. He was unable to sleep during the night due to the discomfort. Thus he presented to the office for evaluation. In the office he was noted to be tender in the right lower quadrant. He was afebrile with a temperature of 98.4. He had a complete blood count with a white blood cell count of 22,000, hemoglobin was 16.5 and hematocrit 47.5. Granulocytes were 83.7. Urine showed only 1+ ketones 1+ bili and 1+ protein; nitrates and leukocytes were negative. Patient was felt to have an acute appendicitis with the need for admission to [facility]. Due to hospital regulation he was sent to the emergency room for further evaluation and for the admission. At the time of this report patient remains in the emergency room and will have a CT of the abdomen. Hospital Course Hospital Course: The patient was admitted and a CT of the abdomen and pelvis was ordered. It showed acute appendicitis and he was taken directly to surgery by Dr. Swain. He had a laparoscopic appendectomy and there were severe inflammatory changes throughout the appendix along with suppurative changes along the mid and distal appendix. There was no definitive perforation, but the appendix was directly adhered to the adjacent colon and adjacent small bowel. There was no evidence of colonic or small bowel injury with removal. The patient tolerated the procedure well. He was started on IV antibiotics. Dr. Swain ordered a diet and he tolerated this well. By 05/15/2021, it was felt he could be discharged home with close outpatient follow-up. Dr. Swain wanted him to slowly advance his diet and take [id number] stool softeners. He also ordered a short course of Augmentin. He will follow-up with Dr. Swain in his office. Objective Vital signs: Temp Pulse Resp BP Pulse Ox 98.4 F 76 24 132/87 95 05/15/21 11:15 05/15/21 11:15 05/15/21 11:15 05/15/21 11:15 05/15/21 11:15 Narrative: - Constitutional no acute distress - *Routine HEENT Exam Head: Present: normocephalic, atraumatic Eye: Absent: PERRL, conjunctival icterus, scleral injection ENT: Present: mucous membranes moist, oropharynx clear - *Routine Neck Exam Present: supple. Absent: normal carotid upstroke, lymphadenopathy, thyromegaly - *Routine Respiratory Exam Present: CTA bilaterally (A&P) - *Routine Cardiovascular Exam Present: RRR - *Routine Abdominal Exam Present: soft, normoactive bowel sounds, tenderness (RLQ), rebound. Absent: distended - *Routine Rectal Exam Rectal:: deferred - *Routine Genitalia Exam Genitalia:: deferred - *Routine Extremities Exam Absent: edema, calf tenderness - *Routine Neurological Exam Present: alert, oriented X3 DS: Diagnosis - Discharge Diagnosis (1) Right lower quadrant abdominal pain Status: Acute (2) Smoking addiction Status: Chronic (3) Anxiety Status: Chronic (4) Leucocytosis Status: Acute (5) Suppurative appendicitis Status: Acute Discharge Plan - Patient Discharge Instructions ACTIVITY: Limited activity, No heavy lifting DIET: advance to your usual diet, other (Soft diet with slow advancement) Additional Instructions: [id number] stool softeners for the next week Patient Instructions: Appendicitis - Follow up Plan Follow up with: Katerin Solomon MD [Primary Care Provider] - 05/19/21 9:00 am Danie Swain MD [Staff Physician] - 05/22/21 9:15 am Disposition: Home, Self-Care Condition at discharge:: Improved Ho
== END 2021-05-15 15:20 | disposition home or self-care (01) ==
LOC: ER 14:21 → OUTP 14:25 → 2ND 17:06
PROVIDERS: Surgery; Admitting Provider Family Medicine; Emergency Provider Emergency Medicine; PCP Family Medicine; Visit Provider Family Medicine
PROC: 0DTJ4ZZ Resection of Appendix, Percutaneous Endoscopic Approach (ICD-10-PCS; CPT 44970; principal; 2021-05-13 15:15)
DX: K35.80 Unspecified acute appendicitis (principal); F17.210 Nicotine dependence, cigarettes, uncomplicated; Z20.822 Contact with and (suspected) exposure to COVID-19
CPT/HCPCS: 44970; 36415; 74177; 80048; 80053; 83690; 85007; 85025; 87086; 96365; 99284; C9803; G0378; J0696; J2405; J2543; J2710; Q9967; U0003; U0005

== ENCOUNTER → 2021-11-30 15:08 | Outpatient (CLI) | payer OTHER, SELFPAY ==
--- NOTE | 2021-11-30 15:12 | CT_ITS ---
FINAL REPORT CLINICAL HISTORY: TOBACCO ABUSE DISORDER, smoker for 30 years, smokes 1.5 packs per day FINDINGS: Low-Dose Chest CT Axial images were obtained from the lung apex to the mid abdomen by computed tomography. Low-dose protocol was utilized. CTDI vol (mGy): 2.90 DLP (mGy-cm): 114.38 There is no axillary adenopathy. There is no hilar or mediastinal adenopathy. The heart is proper size. There is moderate left coronary artery calcification. There is no pericardial or pleural effusion. Limited images of the upper abdomen are unremarkable. Lung window images demonstrate mild changes of emphysema with mild pulmonary scarring. There is a 3 mm nodule in the right middle lobe which is seen on image 60. IMPRESSION: 3 mm pulmonary nodule in the right middle lobe. Lung RADS category 2. Recommend 12 month follow-up low-dose chest CT. Reviewed, Interpreted and Dictated by Dash Anand III, MD Transcribed by Michelle Bull Authenticated and . [facility]
== END ==
PROVIDERS: PCP Family Medicine; Visit Provider Family Medicine
DX: Z87.891 Personal history of nicotine dependence (principal); Z12.2 Encounter for screening for malignant neoplasm of respiratory organs
CPT/HCPCS: 71271

== ENCOUNTER → 2022-03-03 12:39 | Outpatient (CLI) | payer OTHER, SELFPAY | LOC: RT 12:41 | PROVIDERS: PCP Family Medicine; Visit Provider Family Medicine | DX: I49.9 Cardiac arrhythmia, unspecified (principal) | CPT/HCPCS: 93306 ==